=== PATIENT | female | born 1995 | race Caucasian/White ===

== ENCOUNTER 2017-08-23 19:02 | Emergency (ER) | payer OTHER ==
[~2017-08-23] VITALS: Ht 162.6 cm; Wt 79.4 kg
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
[2017-08-23] MEDS ORDERED: MUPI15CR TP (20:54)
[2017-08-23] MEDS ORDERED: HYDR-3812 PO (20:54)
[2017-08-23] MEDS ORDERED: CYCL10TA9 PO (20:54)
[2017-08-23] MEDS ORDERED: RX-CYCLOBENZAPRINE 10 MG (FLEXERIL) TAB PPK#3 PO STA (20:56)
[2017-08-23] MEDS ORDERED: RX-HYDROCODONE/APAP 5/325 MG #4 TAB PK PO PRN (21:00)
[2017-08-23 21:02] VITALS: BP 129/87
== END 2017-08-23 21:02 | disposition home or self-care (01) ==
LOC: ER 19:06
DX: S00.33XA Contusion of nose, initial encounter (principal); S10.93XA Contusion of unspecified part of neck, initial encounter; S80.211A Abrasion, right knee, initial encounter; Z87.448 Personal history of other diseases of urinary system; W22.11XA Striking against or struck by driver side automobile airbag, initial encounter
CPT/HCPCS: 99283